=== PATIENT | female | born 1935 | race Caucasian/White ===

== ENCOUNTER → 2017-09-29 | Outpatient (CLI) | payer MEDICARE, OTHER ==
[~2017-09-29] MED LIST: DIAZEPAM 10 MG TABLET.; FAMOTIDINE 20 MG/2 ML VIAL; IOHEXOL 300 MG/ML 50 ML VIAL.; IV NORMAL SALINE 500ML BAG 500 ML; LIDOCAINE 1% PF 30 ML VIAL.; MIDAZOLAM HCL/PF 2 MG/2 ML VIAL.; diphenhydrAMINE 50 MG/ML VIAL; fentaNYL PF VIAL 100 MCG/2 ML VIAL; methylPREDNISolone SOD SUCC PF 125 MG/2 ML VIAL.
== END ==
LOC: PCVCINTER 08:27
DX: M48.54XA Collapsed vertebra, not elsewhere classified, thoracic region, initial encounter for fracture (principal); M81.0 Age-related osteoporosis without current pathological fracture; Z79.01 Long term (current) use of anticoagulants; Z88.1 Allergy status to other antibiotic agents; Z88.2 Allergy status to sulfonamides; Z88.8 Allergy status to other drugs, medicaments and biological substances; Z79.899 Other long term (current) drug therapy
CPT/HCPCS: 22513; 99152; 99153; J1200; J2250; J2930; J3010; J7040; Q9967; S0028

== ENCOUNTER → 2017-10-03 | Outpatient (CLI) | payer MEDICARE, OTHER | END | disposition home or self-care (01) | LOC: PCVCCLINIC 15:55 | DX: Z51.81 Encounter for therapeutic drug level monitoring (principal); Z79.01 Long term (current) use of anticoagulants | CPT/HCPCS: 85610 ==

== ENCOUNTER → 2017-10-05 | Outpatient (CLI) | payer MEDICARE, OTHER ==
[~2017-10-05] MED LIST changes: +VANCOMYCIN 1GM IVPB FOR OMNI 250 ML
== END ==
LOC: PCVCINTER 08:42
DX: M48.56XA Collapsed vertebra, not elsewhere classified, lumbar region, initial encounter for fracture (principal); M81.0 Age-related osteoporosis without current pathological fracture; Z79.01 Long term (current) use of anticoagulants; Z79.899 Other long term (current) drug therapy; Z88.1 Allergy status to other antibiotic agents; Z88.2 Allergy status to sulfonamides; Z88.8 Allergy status to other drugs, medicaments and biological substances
CPT/HCPCS: 22514; 99152; 99153; J1200; J2250; J2930; J3010; J3370; J7040; Q9967; S0028